=== PATIENT | male | born 1950 | race African-American/Black ===

== ENCOUNTER 2019-11-15 14:31 | Inpatient (IN) | payer MEDICARE, MEDICAID ==
[~2019-11-15] VITALS: Ht 172.7 cm; Wt 63.5 kg
[2019-11-15] MEDS ORDERED: SODIUM CHLORIDE 0.9% 1000ML BAG (SEPSIS BOLUS) IV ONE (15:15)
[2019-11-15 15:46] LABS: HEMATOCRIT. 27.5 % (42.0-52.0); HEMOGLOBIN. 9.5 g/dL (14.0-18.0); LYMPHOCYTES % 11.5 % (20.0-50.0); MEAN CORPUSCULAR HEMOGLOBIN 33.5 pg (28.0-32.0); MEAN CORPUSCULAR VOLUME 97.1 fL (80.0-94.0); MEAN PLATELET VOLUME 9.5 fl (7.4-10.4); MONOCYTES % 7.6 % (2.0-8.0); NEUTROPHILS % 77.9 % (40.0-76.0); PLATELET 368 x1000/uL (130-400); RED BLOOD CELL COUNT 2.83 mill/uL (4.7-6.1); RED CELL DISTRIBUTION WIDTH 13.3 % (11.6-14.6)
[2019-11-15 15:48] LABS: CHLORIDE 108 mEq/L (98-107)
[2019-11-15 15:49] LABS: PROTHROMBIN TIME 10.6 sec (9.6-11.0)
[2019-11-15] MEDS ORDERED: PIPERACILLIN/TAZ 3.375G PREMIX 50 ML IV ONE (16:15)
[2019-11-15 16:49] LABS: CLARITY URINE CLEAR (CLEAR); COLOR URINE YELLOW (YELLOW); KETONES URINE NEGATIVE (NEGATIVE); LEUKOCYTE ESTERASE URINE 1+ (NEGATIVE); NITRITE URINE NEGATIVE (NEGATIVE); OCCULT BLOOD URINE NEGATIVE (NEGATIVE); PROTEIN URINE 1+ (NEGATIVE); SPECIFIC GRAVITY URINE 1.017 (1.005-1.030)
[2019-11-15 17:01] LABS: *AMPHETAMINES SCREEN URINE NEGATIVE (NEGATIVE); *BARBITURATES SCREEN URINE NEGATIVE (NEGATIVE); *BENZODIAZEPINES SCREEN URINE NEGATIVE (NEGATIVE); *COCAINE SCREEN URINE NEGATIVE (NEGATIVE); METHADONE URINE SCREEN NEGATIVE (NEGATIVE)
[2019-11-15 17:02] LABS: CANNABINOID URINE SCREEN NEGATIVE (NEGATIVE); OPIATES URINE SCREEN PRESUMTIVE POSITIVE (NEGATIVE); PHENCYCLIDINE URINE SCREEN NEGATIVE (NEGATIVE)
[2019-11-15] MEDS ORDERED: PIPERACILLIN/TAZ 3.375G PREMIX 50 ML IV NR (17:15)
[2019-11-15] MEDS ORDERED: PIPERACILLIN/TAZ 3.375G PREMIX 50 ML IV SCH (23:15)
[2019-11-15] MEDS ORDERED: IPRATROPIUM/ALBUTEROL 0.5-3(2.5)MG/3ML NEB NEB PRN (23:15)
[2019-11-15] MEDS ORDERED: ONDANSETRON HCL 4MG/2ML INJ IV PRN (23:15)
[2019-11-15] MEDS ORDERED: ENOXAPARIN 40MG/0.4ML SYR SUBCUT SCH (23:15)
[2019-11-16] VITALS (7 sets, daily range): BP systolic 103–137; BP diastolic 63–86
[2019-11-16] MEDS: PIPERACILLIN/TAZOBACTAM 2.25 G in DEXTROSE 5% WATER 50 ML IV SCH ×5 (00:30→23:09)
[2019-11-16] MEDS ORDERED: VANCOMYCIN 750 MG PREMIX 150 ML IV SCH (01:00)
[2019-11-16] MEDS: HYDROMORPHONE HCL/PF 2MG/ML CPJ IV PRN ×6 (01:32→22:16)
[2019-11-16] MEDS: ACETAMINOPHEN 325MG TABLET PO PRN ×4 (03:12→22:15)
[2019-11-16] MEDS ORDERED: DEXTROSE 50% WATER 50ML SYRINGE IV PRN (03:30)
[2019-11-16] MEDS ORDERED: AMLO10TA80 MT (05:51)
[2019-11-16] MEDS ORDERED: METO-385 MT (05:51)
[2019-11-16] MEDS ORDERED: CEPH500C2 MT (06:31)
[2019-11-16] MEDS: SODIUM CHLORIDE 0.9% 1,000 ML IV SCH ×3 (06:51→23:10)
[2019-11-16] MEDS: BLOOD SUGAR DIAGNOSTIC STRIP TEST SCH ×4 (07:23→21:00)
[2019-11-16] MEDS: INSULIN LISPRO 100 UNITS/ML SUBCUT SCH ×4 (07:50→20:59)
[2019-11-16] MEDS ORDERED: ENOXAPARIN 30MG/0.3ML SYR SUBCUT SCH (09:00)
[2019-11-16 12:11] LABS: EOSINOPHILS % 2.4 % (0.0-5.0); HEMOGLOBIN. 9.5 g/dL (14.0-18.0); LYMPHOCYTES % 11.9 % (20.0-50.0); MEAN CORPUSCULAR HEMOGLOBIN 32.9 pg (28.0-32.0); MEAN CORPUSCULAR VOLUME 96.4 fL (80.0-94.0); MEAN PLATELET VOLUME 8.9 fl (7.4-10.4); MONOCYTES % 8.1 % (2.0-8.0); NEUTROPHILS % 76.6 % (40.0-76.0); PLATELET 301 x1000/uL (130-400); RED CELL DISTRIBUTION WIDTH 13.1 % (11.6-14.6)
[2019-11-16 12:18] LABS: CHLORIDE 113 mEq/L (98-107)
[2019-11-16 12:26] LABS: CREATINE KINASE 149 IU/L (39-308)
[2019-11-16 12:27] LABS: CREATINE KINASE MB FRACTION < 1.0 ng/mL (0.5-3.6)
[2019-11-17 00:02] VITALS: BP 118/77
[2019-11-17] MEDS: ACETAMINOPHEN 325MG TABLET PO PRN ×4 (02:16→21:30)
[2019-11-17] MEDS: HYDROMORPHONE HCL/PF 2MG/ML CPJ IV PRN ×5 (02:16→22:51)
[2019-11-17 04:00] VITALS: BP 153/87
[2019-11-17] MEDS: HYDROCODONE/ACETAMINOPHEN 5/325MG TABLET PO PRN ×3 (05:43→19:41)
[2019-11-17] MEDS: PIPERACILLIN/TAZOBACTAM 2.25 G in DEXTROSE 5% WATER 50 ML IV SCH ×3 (06:19→17:23)
[2019-11-17] MEDS: BLOOD SUGAR DIAGNOSTIC STRIP TEST SCH ×4 (06:36→20:55)
[2019-11-17] MEDS: INSULIN LISPRO 100 UNITS/ML SUBCUT SCH ×4 (06:37→20:55)
[2019-11-17 06:39] LABS: BASOPHILS % 1.1 % (0.0-2.0); EOSINOPHILS % 3.1 % (0.0-5.0); HEMATOCRIT. 24.7 % (42.0-52.0); HEMOGLOBIN. 8.4 g/dL (14.0-18.0); LYMPHOCYTES % 11.6 % (20.0-50.0); MEAN CORPUSCULAR HEMOGLOBIN 32.8 pg (28.0-32.0); MEAN CORPUSCULAR VOLUME 96.2 fL (80.0-94.0); MEAN PLATELET VOLUME 9.3 fl (7.4-10.4); MONOCYTES % 8.6 % (2.0-8.0); NEUTROPHILS % 75.6 % (40.0-76.0); PLATELET 287 x1000/uL (130-400); RED BLOOD CELL COUNT 2.56 mill/uL (4.7-6.1); RED CELL DISTRIBUTION WIDTH 13.2 % (11.6-14.6)
[2019-11-17 06:50] LABS: CHLORIDE 114 mEq/L (98-107)
[2019-11-17 07:00] LABS: CREATINE KINASE 150 IU/L (39-308)
[2019-11-17 07:03] LABS: CREATINE KINASE MB FRACTION < 1.0 ng/mL (0.5-3.6)
[2019-11-17 08:08] VITALS: BP 120/74
[2019-11-17] MEDS: SODIUM CHLORIDE 0.9% 1,000 ML IV SCH ×3 (08:46→23:01)
[2019-11-17] MEDS: ASPIRIN 81MG EC TABLET PO SCH (08:47)
[2019-11-17] MEDS: AMLODIPINE 5MG TABLET PO SCH (08:47)
[2019-11-17] MEDS: ENOXAPARIN 40MG/0.4ML SYR SUBCUT SCH (08:50)
[2019-11-17] MEDS ORDERED: VANCOMYCIN 750 MG PREMIX 150 ML IV SCH (12:00)
[2019-11-17 12:08] VITALS: BP 130/78
[2019-11-17] MEDS ORDERED: IOHEXOL-350 100 ML BOTTLE ONE ×2 (12:43→17:13)
[2019-11-17 16:09] VITALS: BP 125/79
[2019-11-17 20:19] VITALS: BP 121/75
[2019-11-18] MEDS: PIPERACILLIN/TAZOBACTAM 3.375 G in DEXT 5% WATER 100 ML IV SCH ×4 (00:05→17:54)
[2019-11-18] MEDS: HYDROCODONE/ACETAMINOPHEN 5/325MG TABLET PO PRN ×6 (00:29→23:30)
[2019-11-18 00:43] VITALS: BP 116/81
[2019-11-18] MEDS: ACETAMINOPHEN 325MG TABLET PO PRN ×2 (01:43→06:26)
[2019-11-18] MEDS: HYDROMORPHONE HCL/PF 2MG/ML CPJ IV PRN ×4 (02:53→20:45)
[2019-11-18 04:00] VITALS: BP 144/80
[2019-11-18] MEDS: BLOOD SUGAR DIAGNOSTIC STRIP TEST SCH ×4 (06:25→20:48)
[2019-11-18 06:58] LABS: BASOPHILS % 1.1 % (0.0-2.0); HEMATOCRIT. 27.8 % (42.0-52.0); HEMOGLOBIN. 9.6 g/dL (14.0-18.0); LYMPHOCYTES % 17.1 % (20.0-50.0); MEAN CORPUSCULAR HEMOGLOBIN 32.9 pg (28.0-32.0); MEAN CORPUSCULAR VOLUME 95.1 fL (80.0-94.0); MEAN PLATELET VOLUME 9.3 fl (7.4-10.4); MONOCYTES % 8.3 % (2.0-8.0); NEUTROPHILS % 70.5 % (40.0-76.0); PLATELET 320 x1000/uL (130-400); RED BLOOD CELL COUNT 2.92 mill/uL (4.7-6.1); RED CELL DISTRIBUTION WIDTH 13.2 % (11.6-14.6)
[2019-11-18] MEDS: SODIUM CHLORIDE 0.9% 1,000 ML IV SCH ×3 (07:30→23:30)
[2019-11-18] MEDS: INSULIN LISPRO 100 UNITS/ML SUBCUT SCH ×4 (07:50→20:48)
[2019-11-18 07:59] LABS: CHLORIDE 110 mEq/L (98-107)
[2019-11-18 08:00] VITALS: BP 139/88
[2019-11-18] MEDS: ENOXAPARIN 40MG/0.4ML SYR SUBCUT SCH ×2 (09:38→09:40)
[2019-11-18] MEDS: ASPIRIN 81MG EC TABLET PO SCH (09:39)
[2019-11-18] MEDS: AMLODIPINE 5MG TABLET PO SCH ×2 (09:39→20:45)
[2019-11-18 12:00] VITALS: BP 129/83
[2019-11-18 16:00] VITALS: BP 117/82
[2019-11-18 20:00] VITALS: BP 134/84
[2019-11-19] VITALS: BP 121/77
[2019-11-19] MEDS: PIPERACILLIN/TAZOBACTAM 3.375 G in DEXT 5% WATER 100 ML IV SCH ×4 (00:35→17:45)
[2019-11-19] MEDS: HYDROMORPHONE HCL/PF 2MG/ML CPJ IV PRN ×4 (00:45→19:40)
[2019-11-19] MEDS: HYDROCODONE/ACETAMINOPHEN 5/325MG TABLET PO PRN ×4 (03:30→21:35)
[2019-11-19 04:00] VITALS: BP 129/84
[2019-11-19] MEDS: SODIUM CHLORIDE 0.9% 1,000 ML IV SCH ×3 (06:18→20:03)
[2019-11-19] MEDS: INSULIN LISPRO 100 UNITS/ML SUBCUT SCH ×4 (06:52→20:04)
[2019-11-19] MEDS: BLOOD SUGAR DIAGNOSTIC STRIP TEST SCH ×4 (06:52→20:03)
[2019-11-19 08:00] VITALS: BP 120/81
[2019-11-19] MEDS: ASPIRIN 81MG EC TABLET PO SCH (09:25)
[2019-11-19] MEDS: AMLODIPINE 5MG TABLET PO SCH ×2 (09:25→20:02)
[2019-11-19 12:00] VITALS: BP 127/65
[2019-11-19 16:00] VITALS: BP 104/55
[2019-11-19 20:00] VITALS: BP 117/80
[2019-11-20] VITALS: BP 112/77
[2019-11-20] MEDS: PIPERACILLIN/TAZOBACTAM 3.375 G in DEXT 5% WATER 100 ML IV SCH ×4 (00:27→17:44)
[2019-11-20] MEDS: HYDROCODONE/ACETAMINOPHEN 5/325MG TABLET PO PRN ×4 (01:48→20:23)
[2019-11-20 04:00] VITALS: BP 121/73
[2019-11-20] MEDS: HYDROMORPHONE HCL/PF 2MG/ML CPJ IV PRN ×4 (04:12→21:41)
[2019-11-20] MEDS: BLOOD SUGAR DIAGNOSTIC STRIP TEST SCH ×4 (06:32→20:24)
[2019-11-20] MEDS: SODIUM CHLORIDE 0.9% 1,000 ML IV SCH ×2 (06:33→15:01)
[2019-11-20] MEDS: INSULIN LISPRO 100 UNITS/ML SUBCUT SCH ×4 (07:50→20:23)
[2019-11-20 08:00] VITALS: BP 124/99
[2019-11-20] MEDS: ASPIRIN 81MG EC TABLET PO SCH (08:06)
[2019-11-20] MEDS: AMLODIPINE 5MG TABLET PO SCH ×2 (08:07→20:23)
[2019-11-20] MEDS: ENOXAPARIN 40MG/0.4ML SYR SUBCUT SCH (08:07)
[2019-11-20 12:00] VITALS: BP 142/91
[2019-11-20 16:00] VITALS: BP 139/87
[2019-11-20 20:40] VITALS: BP 114/84
[2019-11-21] VITALS: BP 148/95
[2019-11-21] MEDS: HYDROCODONE/ACETAMINOPHEN 5/325MG TABLET PO PRN (00:23)
[2019-11-21] MEDS: GABAPENTIN 300MG CAPSULE PO SCH ×3 (01:29→21:31)
[2019-11-21] MEDS: HYDROMORPHONE HCL/PF 2MG/ML CPJ IV PRN ×5 (01:30→21:32)
[2019-11-21 04:00] VITALS: BP 131/85
[2019-11-21] MEDS: SODIUM CHLORIDE 0.9% 1,000 ML IV SCH ×4 (04:35→23:30)
[2019-11-21] MEDS: BLOOD SUGAR DIAGNOSTIC STRIP TEST SCH ×4 (07:20→21:00)
[2019-11-21] MEDS: INSULIN LISPRO 100 UNITS/ML SUBCUT SCH ×4 (07:44→21:00)
[2019-11-21 08:00] VITALS: BP 138/94
[2019-11-21] MEDS: AMLODIPINE 5MG TABLET PO SCH ×2 (08:46→21:32)
[2019-11-21] MEDS: ASPIRIN 81MG EC TABLET PO SCH (08:46)
[2019-11-21] MEDS: ENOXAPARIN 40MG/0.4ML SYR SUBCUT SCH (08:47)
[2019-11-21 12:00] VITALS: BP 124/77
[2019-11-21 15:29] VITALS: BP 138/94
[2019-11-21] MEDS: ACETAMINOPHEN 325MG TABLET PO PRN (17:49)
[2019-11-21 20:03] VITALS: BP 126/86
[2019-11-22 00:10] VITALS: BP 129/89
[2019-11-22 04:00] VITALS: BP 124/93
[2019-11-22] MEDS: HYDROMORPHONE HCL/PF 2MG/ML CPJ IV PRN ×4 (04:31→20:18)
[2019-11-22] MEDS: GABAPENTIN 300MG CAPSULE PO SCH ×3 (05:26→21:29)
[2019-11-22] MEDS: BLOOD SUGAR DIAGNOSTIC STRIP TEST SCH ×4 (07:20→20:37)
[2019-11-22] MEDS: INSULIN LISPRO 100 UNITS/ML SUBCUT SCH ×4 (07:50→20:37)
[2019-11-22 08:00] VITALS: BP 124/94
[2019-11-22 08:01] LABS: BASOPHILS % 0.9 % (0.0-2.0); EOSINOPHILS % 4.6 % (0.0-5.0); HEMATOCRIT. 28.1 % (42.0-52.0); HEMOGLOBIN. 9.5 g/dL (14.0-18.0); LYMPHOCYTES % 15.5 % (20.0-50.0); MEAN CORPUSCULAR HEMOGLOBIN 32.5 pg (28.0-32.0); MEAN CORPUSCULAR VOLUME 95.7 fL (80.0-94.0); MEAN PLATELET VOLUME 8.8 fl (7.4-10.4); MONOCYTES % 9.4 % (2.0-8.0); NEUTROPHILS % 69.6 % (40.0-76.0); PLATELET 368 x1000/uL (130-400); RED BLOOD CELL COUNT 2.94 mill/uL (4.7-6.1); RED CELL DISTRIBUTION WIDTH 13.4 % (11.6-14.6)
[2019-11-22 08:07] LABS: CHLORIDE 107 mEq/L (98-107)
[2019-11-22] MEDS: ASPIRIN 81MG EC TABLET PO SCH (09:18)
[2019-11-22] MEDS: SODIUM CHLORIDE 0.9% 1,000 ML IV SCH ×2 (09:18→17:40)
[2019-11-22] MEDS: AMLODIPINE 5MG TABLET PO SCH ×2 (09:18→20:11)
[2019-11-22] MEDS: ENOXAPARIN 40MG/0.4ML SYR SUBCUT SCH (09:19)
[2019-11-22] MEDS: ACETAMINOPHEN 325MG TABLET PO PRN ×2 (11:21→17:40)
[2019-11-22 12:00] VITALS: BP 150/94
[2019-11-22 16:00] VITALS: BP 138/92
[2019-11-22 20:12] VITALS: BP 111/75
[2019-11-22] MEDS: LOSARTAN POTASSIUM 50 MG TABLET PO SCH (20:18)
[2019-11-23] MEDS: HYDROMORPHONE HCL/PF 2MG/ML CPJ IV PRN ×5 (00:13→20:16)
[2019-11-23] MEDS: SODIUM CHLORIDE 0.9% 1,000 ML IV SCH ×3 (00:13→19:55)
[2019-11-23 00:22] VITALS: BP 131/74
[2019-11-23 04:00] VITALS: BP 123/75
[2019-11-23] MEDS: GABAPENTIN 300MG CAPSULE PO SCH ×3 (06:15→21:03)
[2019-11-23] MEDS: BLOOD SUGAR DIAGNOSTIC STRIP TEST SCH ×4 (06:49→20:22)
[2019-11-23] MEDS: INSULIN LISPRO 100 UNITS/ML SUBCUT SCH ×4 (06:49→20:22)
[2019-11-23 08:00] VITALS: BP 123/86
[2019-11-23] MEDS: ASPIRIN 81MG EC TABLET PO SCH (08:45)
[2019-11-23] MEDS: LOSARTAN POTASSIUM 50 MG TABLET PO SCH (08:45)
[2019-11-23] MEDS: AMLODIPINE 5MG TABLET PO SCH ×2 (08:46→20:16)
[2019-11-23] MEDS: ENOXAPARIN 40MG/0.4ML SYR SUBCUT SCH (08:47)
[2019-11-23] MEDS: ACETAMINOPHEN 325MG TABLET PO PRN ×2 (10:51→16:44)
[2019-11-23 12:00] VITALS: BP 111/67
[2019-11-23 16:00] VITALS: BP 120/88
[2019-11-23] MEDS ORDERED: LOSARTAN POTASSIUM 50 MG TABLET PO SCH (18:40)
[2019-11-23 20:00] VITALS: BP 109/77
[2019-11-24] VITALS: BP 116/69
[2019-11-24] MEDS: HYDROMORPHONE HCL/PF 2MG/ML CPJ IV PRN ×5 (01:09→20:11)
[2019-11-24 04:00] VITALS: BP 132/80
[2019-11-24] MEDS: GABAPENTIN 300MG CAPSULE PO SCH ×3 (05:57→21:42)
[2019-11-24] MEDS: SODIUM CHLORIDE 0.9% 1,000 ML IV SCH ×4 (06:15→20:12)
[2019-11-24] MEDS: BLOOD SUGAR DIAGNOSTIC STRIP TEST SCH ×4 (06:38→21:58)
[2019-11-24] MEDS: INSULIN LISPRO 100 UNITS/ML SUBCUT SCH ×4 (07:50→21:00)
[2019-11-24 08:00] VITALS: BP 127/89
[2019-11-24] MEDS: ACETAMINOPHEN 325MG TABLET PO PRN (08:40)
[2019-11-24] MEDS: ASPIRIN 81MG EC TABLET PO SCH (08:40)
[2019-11-24] MEDS: AMLODIPINE 5MG TABLET PO SCH ×2 (08:40→20:11)
[2019-11-24] MEDS: ENOXAPARIN 40MG/0.4ML SYR SUBCUT SCH (08:41)
[2019-11-24] MEDS: LOSARTAN POTASSIUM 50 MG TABLET PO SCH (08:41)
[2019-11-24] MEDS ORDERED: HYDROMORPHONE HCL/PF 2MG/ML CPJ IM PRN (09:15)
[2019-11-24 12:25] VITALS: BP 109/74
[2019-11-24] MEDS: HYDROCODONE/ACETAMINOPHEN 5/325MG TABLET PO PRN ×3 (13:20→22:44)
[2019-11-24 16:00] VITALS: BP 111/23
[2019-11-24 20:00] VITALS: BP 115/73
[2019-11-24] MEDS: LORAZEPAM 1MG TABLET PO PRN (20:36)
[2019-11-25] VITALS: BP 135/78
[2019-11-25] MEDS: HYDROMORPHONE HCL/PF 2MG/ML CPJ IV PRN ×5 (00:21→21:56)
[2019-11-25] MEDS: HYDROCODONE/ACETAMINOPHEN 5/325MG TABLET PO PRN ×4 (03:31→19:50)
[2019-11-25] MEDS: LORAZEPAM 1MG TABLET PO PRN (03:48)
[2019-11-25 04:00] VITALS: BP 112/72
[2019-11-25] MEDS: GABAPENTIN 300MG CAPSULE PO SCH ×3 (05:51→21:56)
[2019-11-25] MEDS: SODIUM CHLORIDE 0.9% 1,000 ML IV SCH ×3 (06:15→23:16)
[2019-11-25] MEDS: INSULIN LISPRO 100 UNITS/ML SUBCUT SCH ×4 (06:28→21:00)
[2019-11-25] MEDS: BLOOD SUGAR DIAGNOSTIC STRIP TEST SCH ×4 (06:28→21:00)
[2019-11-25 08:00] VITALS: BP 97/56
[2019-11-25] MEDS: AMLODIPINE 5MG TABLET PO SCH ×2 (09:00→21:56)
[2019-11-25] MEDS: LOSARTAN POTASSIUM 50 MG TABLET PO SCH (09:00)
[2019-11-25] MEDS: ASPIRIN 81MG EC TABLET PO SCH (09:00)
[2019-11-25] MEDS: ENOXAPARIN 40MG/0.4ML SYR SUBCUT SCH (09:00)
[2019-11-25 12:00] VITALS: BP 119/74
[2019-11-25 16:00] VITALS: BP 126/78
[2019-11-25 20:00] VITALS: BP 118/91
[2019-11-26] VITALS: BP 114/71
[2019-11-26] MEDS: HYDROCODONE/ACETAMINOPHEN 5/325MG TABLET PO PRN ×5 (00:10→16:34)
[2019-11-26] MEDS: HYDROMORPHONE HCL/PF 2MG/ML CPJ IV PRN ×4 (02:27→14:37)
[2019-11-26 04:00] VITALS: BP 126/83
[2019-11-26] MEDS: GABAPENTIN 300MG CAPSULE PO SCH ×2 (06:40→14:36)
[2019-11-26] MEDS: SODIUM CHLORIDE 0.9% 1,000 ML IV SCH ×2 (06:51→10:40)
[2019-11-26] MEDS: BLOOD SUGAR DIAGNOSTIC STRIP TEST SCH ×3 (06:52→17:20)
[2019-11-26] MEDS: INSULIN LISPRO 100 UNITS/ML SUBCUT SCH ×3 (07:44→17:50)
[2019-11-26 08:00] VITALS: BP 101/65
[2019-11-26] MEDS: LOSARTAN POTASSIUM 50 MG TABLET PO SCH (08:37)
[2019-11-26] MEDS: AMLODIPINE 5MG TABLET PO SCH (08:38)
[2019-11-26] MEDS: ASPIRIN 81MG EC TABLET PO SCH (08:38)
[2019-11-26] MEDS: ENOXAPARIN 40MG/0.4ML SYR SUBCUT SCH (08:39)
[2019-11-26 12:00] VITALS: BP 117/70
[2019-11-26 16:00] VITALS: BP 108/72
[2019-11-26 17:04] VITALS: BP 108/72
== END 2019-11-26 19:10 | DRG 564 ==
LOC: ER 14:51 → MICUSO 17:01 → EDBEDREQ 17:05 → EDBEDREQSVC 17:05 → 6WST 11-16 01:21 → 6EST 11-22 11:57
PROVIDERS: ADMIT Internal Medicine; ATTEND Internal Medicine
DX: T87.81 Dehiscence of amputation stump (principal); E43 Unspecified severe protein-calorie malnutrition; N39.0 Urinary tract infection, site not specified; N17.9 Acute kidney failure, unspecified; I96 Gangrene, not elsewhere classified; I13.10 Hypertensive heart and chronic kidney disease without heart failure, with stage 1 through stage 4 chronic kidney disease, or unspecified chronic kidney disease; M06.9 Rheumatoid arthritis, unspecified; L84 Corns and callosities; T87.89 Other complications of amputation stump; F15.10 Other stimulant abuse, uncomplicated; I70.202 Unspecified atherosclerosis of native arteries of extremities, left leg; D64.9 Anemia, unspecified; D63.8 Anemia in other chronic diseases classified elsewhere; N18.9 Chronic kidney disease, unspecified; G54.6 Phantom limb syndrome with pain; Y83.5 Amputation of limb(s) as the cause of abnormal reaction of the patient, or of later complication, without mention of misadventure at the time of the procedure; T87.43 Infection of amputation stump, right lower extremity; Z79.899 Other long term (current) drug therapy; Z87.891 Personal history of nicotine dependence; Z89.511 Acquired absence of right leg below knee; Z82.49 Family history of ischemic heart disease and other diseases of the circulatory system; Z68.21 Body mass index [BMI] 21.0-21.9, adult; Y92.89 Other specified places as the place of occurrence of the external cause; Z03.818 Encounter for observation for suspected exposure to other biological agents ruled out
CPT/HCPCS: 36415; 71045; 72191; 73706; 80048; 80053; 80305; 81003; 82550; 82553; 82962; 83036; 83605; 83880; 84145; 84484; 85025; 92523; 93005; 93923; 97110; 97162; 97166; 97530; 99291; J1170; J1650; J1815; J2543; J3370; J7030; J7060; Q9967; U0003-CS

== ENCOUNTER 2019-12-21 17:55 | Inpatient (IN) | payer MEDICARE, MEDICAID ==
[~2019-12-21] VITALS: Ht 320 cm; Wt 59.4 kg
[~2019-12-21 17:55] MED LIST: AMLO10TA80 MT; CEPH500C2 MT; METO-385 MT
[2019-12-21 19:51] LABS: BASOPHILS % 0.9 % (0.0-2.0); EOSINOPHILS % 4.5 % (0.0-5.0); HEMATOCRIT. 24.4 % (42.0-52.0); HEMOGLOBIN. 8.3 g/dL (14.0-18.0); LYMPHOCYTES % 20.3 % (20.0-50.0); MEAN CORPUSCULAR HEMOGLOBIN 31.6 pg (28.0-32.0); MONOCYTES % 6.3 % (2.0-8.0); PLATELET 406 x1000/uL (130-400); RED BLOOD CELL COUNT 2.63 mill/uL (4.7-6.1)
[2019-12-21 19:53] LABS: CHLORIDE 104 mEq/L (98-107)
[2019-12-21] MEDS ORDERED: CLONIDINE 0.1MG TABLET PO PRN (23:00)
[2019-12-21] MEDS ORDERED: ACETAMINOPHEN 325MG TABLET PO PRN (23:00)
[2019-12-21] MEDS ORDERED: ONDANSETRON HCL 4MG/2ML INJ IV PRN (23:00)
[2019-12-21] MEDS ORDERED: MAGNESIUM/ALUMINUM HYDROXIDE/SIMETHICONE 30ML UDC PO PRN (23:00)
[2019-12-21] MEDS ORDERED: IPRATROPIUM/ALBUTEROL 0.5-3(2.5)MG/3ML NEB NEB PRN (23:00)
[2019-12-21] MEDS ORDERED: LORAZEPAM 2MG/ML CPJ IV PRN (23:00)
[2019-12-21] MEDS ORDERED: DOCUSATE SODIUM 100MG CAPSULE PO PRN (23:00)
[2019-12-21] MEDS ORDERED: GUAIFENESIN 200MG/10ML SUGAR FREE UDC PO PRN (23:00)
[2019-12-21] MEDS ORDERED: DIPHENHYDRAMINE 50MG/ML VIAL IV PRN (23:00)
[2019-12-21] MEDS ORDERED: MORPHINE SULFATE 2 MG/ML CPJ (NOT FOR IM USE) IV PRN (23:00)
[2019-12-21] MEDS ORDERED: NA PHOS,M-B/NA PHOS,DI-BA ENEMA 118ML PR PRN (23:00)
[2019-12-22 00:04] LABS: CLARITY URINE CLEAR (CLEAR); COLOR URINE YELLOW (YELLOW); KETONES URINE NEGATIVE (NEGATIVE); LEUKOCYTE ESTERASE URINE 2+ (NEGATIVE); NITRITE URINE NEGATIVE (NEGATIVE); OCCULT BLOOD URINE NEGATIVE (NEGATIVE); PROTEIN URINE TRACE (NEGATIVE); SPECIFIC GRAVITY URINE 1.018 (1.005-1.030)
[2019-12-22 00:22] LABS: *AMPHETAMINES SCREEN URINE NEGATIVE (NEGATIVE); *BARBITURATES SCREEN URINE NEGATIVE (NEGATIVE)
[2019-12-22 00:23] LABS: *BENZODIAZEPINES SCREEN URINE NEGATIVE (NEGATIVE); *COCAINE SCREEN URINE NEGATIVE (NEGATIVE); CANNABINOID URINE SCREEN NEGATIVE (NEGATIVE); METHADONE URINE SCREEN NEGATIVE (NEGATIVE); OPIATES URINE SCREEN PRESUMTIVE POSITIVE (NEGATIVE); PHENCYCLIDINE URINE SCREEN NEGATIVE (NEGATIVE)
[2019-12-22] MEDS: HYDROCODONE/ACETAMINOPHEN 5/325MG TABLET PO PRN ×2 (03:52→07:58)
[2019-12-22] MEDS ORDERED: FUROSEMIDE 40MG/4ML VIAL IV SCH (09:00)
[2019-12-22] MEDS ORDERED: ASPIRIN 81MG EC TABLET PO SCH (09:00)
[2019-12-22] MEDS ORDERED: ENOXAPARIN 40MG/0.4ML SYR SUBCUT SCH (09:00)
[2019-12-22] MEDS: CEFTRIAXONE 1 G PREMIX 50 ML IV SCH (10:50)
[2019-12-22 11:35] LABS: BASOPHILS % 1.2 % (0.0-2.0); EOSINOPHILS % 2.9 % (0.0-5.0); HEMATOCRIT. 26.9 % (42.0-52.0); LYMPHOCYTES % 22.2 % (20.0-50.0); MEAN CORPUSCULAR VOLUME 92.1 fL (80.0-94.0); MEAN PLATELET VOLUME 8.7 fl (7.4-10.4); MONOCYTES % 7.9 % (2.0-8.0); NEUTROPHILS % 65.8 % (40.0-76.0); PLATELET 341 x1000/uL (130-400); RED BLOOD CELL COUNT 2.92 mill/uL (4.7-6.1)
[2019-12-22 11:40] LABS: CHLORIDE 103 mEq/L (98-107)
[2019-12-22 11:48] LABS: LDL CHOLESTEROL 150 mg/dL (5-100)
[2019-12-22 11:49] LABS: HDL CHOLESTEROL 35 mg/dL (40-59)
[2019-12-22 11:50] LABS: T4 FREE 1.08 ng/dL (0.76-1.46)
[2019-12-22] MEDS: AZITHROMYCIN 500 MG in DEXT 5% WATER 250 ML IV SCH (12:00)
[2019-12-22] MEDS ORDERED: MAGNESIUM/ALUMINUM HYDROXIDE/SIMETHICONE 30ML UDC PO PRN (19:30)
[2019-12-22] MEDS ORDERED: ONDANSETRON HCL 4MG/2ML INJ IV PRN (19:30)
[2019-12-22] MEDS ORDERED: CLONIDINE 0.1MG TABLET PO PRN (19:30)
[2019-12-22] MEDS ORDERED: GUAIFENESIN 200MG/10ML SUGAR FREE UDC PO PRN (19:30)
[2019-12-22] MEDS ORDERED: IPRATROPIUM/ALBUTEROL 0.5-3(2.5)MG/3ML NEB HHN PRN (19:30)
[2019-12-22] MEDS ORDERED: NA PHOS,M-B/NA PHOS,DI-BA ENEMA 118ML PR NR (19:53)
[2019-12-22] MEDS: ENOXAPARIN 40MG/0.4ML SYR SUBCUT SCH (20:00)
[2019-12-23] MEDS: ENOXAPARIN 40MG/0.4ML SYR SUBCUT SCH ×2 (09:00→20:56)
[2019-12-23] MEDS: CEFTRIAXONE 1 G PREMIX 50 ML IV SCH (09:52)
[2019-12-23] MEDS: AZITHROMYCIN 500 MG in DEXT 5% WATER 250 ML IV SCH (10:00)
[2019-12-23] MEDS: MORPHINE SULFATE 2 MG/ML CPJ (NOT FOR IM USE) IV PRN ×2 (12:22→20:55)
[2019-12-23 15:00] VITALS: BP 110/73
[2019-12-23 17:00] VITALS: BP 110/73
[2019-12-23] MEDS ORDERED: ENOXAPARIN 40MG/0.4ML SYR SUBCUT SCH (17:00)
[2019-12-23 20:00] VITALS: BP 114/80
[2019-12-24] VITALS: BP 126/83
[2019-12-24 04:00] VITALS: BP 120/82
[2019-12-24] MEDS: MORPHINE SULFATE 2 MG/ML CPJ (NOT FOR IM USE) IV PRN ×4 (04:29→18:07)
[2019-12-24] MEDS ORDERED: PRED2.5T4 MT (07:01)
[2019-12-24] MEDS ORDERED: HYDR-3281 MT (07:01)
[2019-12-24] MEDS ORDERED: LISI2.5T47 MT (07:01)
[2019-12-24 08:02] VITALS: BP 111/77
[2019-12-24] MEDS: CEFTRIAXONE 1 G PREMIX 50 ML IV SCH (08:42)
[2019-12-24] MEDS: AZITHROMYCIN 500 MG in DEXT 5% WATER 250 ML IV SCH (08:42)
[2019-12-24] MEDS: ENOXAPARIN 40MG/0.4ML SYR SUBCUT SCH ×2 (08:42→20:39)
[2019-12-24 11:58] VITALS: BP 111/78
[2019-12-24] MEDS: ASPIRIN 81MG TABLET PO SCH (13:12)
[2019-12-24 16:00] VITALS: BP 104/73
[2019-12-24 20:00] VITALS: BP 112/78
[2019-12-24] MEDS: ATORVASTATIN CALCIUM 20MG TABLET PO SCH (20:42)
[2019-12-24] MEDS: HYDROCODONE/ACETAMINOPHEN 5/325MG TABLET PO PRN ×2 (20:42→20:58)
[2019-12-24] MEDS: DIPHENHYDRAMINE 50MG/ML VIAL IM PRN (20:43)
[2019-12-25] VITALS: BP 123/77
[2019-12-25] MEDS: HYDROCODONE/ACETAMINOPHEN 5/325MG TABLET PO PRN (00:01)
[2019-12-25] MEDS: MORPHINE SULFATE 2 MG/ML CPJ (NOT FOR IM USE) IV PRN ×4 (00:10→16:26)
[2019-12-25 04:00] VITALS: BP 114/79
[2019-12-25] MEDS: LORAZEPAM 2MG/ML CPJ IV PRN ×3 (05:05→20:46)
[2019-12-25 07:44] VITALS: BP 124/92
[2019-12-25] MEDS: CEFTRIAXONE 1 G PREMIX 50 ML IV SCH (08:19)
[2019-12-25] MEDS: AZITHROMYCIN 500 MG in DEXT 5% WATER 250 ML IV SCH (08:20)
[2019-12-25] MEDS: ASPIRIN 81MG TABLET PO SCH (09:00)
[2019-12-25] MEDS: ENOXAPARIN 40MG/0.4ML SYR SUBCUT SCH ×2 (09:00→21:37)
[2019-12-25] MEDS ORDERED: HEPARIN SODIUM 1,000 UNIT/1ML VIAL IV ONE ×2 (09:59→10:01)
[2019-12-25] MEDS ORDERED: MIDAZOLAM HCL 2 MG/2 ML VIAL ONE ×2 (12:08→13:36)
[2019-12-25] MEDS ORDERED: FENTANYL CITRATE/PF 50MCG/ML 2ML VIAL ONE (12:09)
[2019-12-25] MEDS ORDERED: IODIXANOL 320MG/ML 100 ML BOTTLE IV ONE (12:09)
[2019-12-25] MEDS ORDERED: LIDOCAINE HCL 1% 20ML VIAL (Pyxis) INJ ONE (12:09)
[2019-12-25] MEDS ORDERED: DIPHENHYDRAMINE 50MG/ML VIAL ONE (13:03)
[2019-12-25] MEDS ORDERED: IOHEXOL-300 100 ML BOTTLE ONE (13:12)
[2019-12-25 16:00] VITALS: BP 122/87
[2019-12-25] MEDS: CLOPIDOGREL 75MG TABLET PO SCH (16:26)
[2019-12-25 20:00] VITALS: BP 116/82
[2019-12-25] MEDS: ATORVASTATIN CALCIUM 20MG TABLET PO SCH ×2 (20:46→21:37)
[2019-12-26] VITALS: BP 133/87
[2019-12-26] MEDS: MORPHINE SULFATE 2 MG/ML CPJ (NOT FOR IM USE) IV PRN ×4 (00:41→21:15)
[2019-12-26 04:00] VITALS: BP 108/81
[2019-12-26] MEDS: LORAZEPAM 2MG/ML CPJ IV PRN (05:17)
[2019-12-26 08:00] VITALS: BP 112/79
[2019-12-26] MEDS: CEFTRIAXONE 1 G PREMIX 50 ML IV SCH (09:06)
[2019-12-26] MEDS: CLOPIDOGREL 75MG TABLET PO SCH (09:06)
[2019-12-26] MEDS: ASPIRIN 81MG TABLET PO SCH (09:06)
[2019-12-26] MEDS: ENOXAPARIN 40MG/0.4ML SYR SUBCUT SCH ×2 (09:07→23:07)
[2019-12-26] MEDS: AZITHROMYCIN 500 MG in DEXT 5% WATER 250 ML IV SCH (09:08)
[2019-12-26 10:48] LABS: BASOPHILS % 1.5 % (0.0-2.0); EOSINOPHILS % 2.4 % (0.0-5.0); HEMATOCRIT. 26.2 % (42.0-52.0); MEAN CORPUSCULAR HEMOGLOBIN 31.5 pg (28.0-32.0); MEAN CORPUSCULAR VOLUME 92.2 fL (80.0-94.0); MEAN PLATELET VOLUME 8.9 fl (7.4-10.4); MONOCYTES % 7.9 % (2.0-8.0); NEUTROPHILS % 68.2 % (40.0-76.0); PLATELET 381 x1000/uL (130-400); RED BLOOD CELL COUNT 2.84 mill/uL (4.7-6.1); RED CELL DISTRIBUTION WIDTH 13.1 % (11.6-14.6)
[2019-12-26 11:59] VITALS: BP 131/81
[2019-12-26] MEDS: AMPICILLIN 500MG in SODIUM CHLORIDE 0.9% 50ML IV SCH ×3 (12:21→23:07)
[2019-12-26 16:00] VITALS: BP 109/78
[2019-12-26 20:00] VITALS: BP 96/62
[2019-12-27] VITALS: BP 130/78
[2019-12-27] MEDS: MORPHINE SULFATE 2 MG/ML CPJ (NOT FOR IM USE) IV PRN ×2 (03:44→10:00)
[2019-12-27 04:00] VITALS: BP 107/59
[2019-12-27] MEDS: AMPICILLIN 500MG in SODIUM CHLORIDE 0.9% 50ML IV SCH ×3 (05:22→16:25)
[2019-12-27 08:00] VITALS: BP 117/88
[2019-12-27] MEDS: ASPIRIN 81MG TABLET PO SCH (08:56)
[2019-12-27] MEDS: CLOPIDOGREL 75MG TABLET PO SCH (08:56)
[2019-12-27] MEDS: ENOXAPARIN 40MG/0.4ML SYR SUBCUT SCH ×2 (08:57→20:00)
[2019-12-27 12:15] VITALS: BP 104/75
[2019-12-27 16:00] VITALS: BP 99/68
[2019-12-27 20:00] VITALS: BP 116/74
[2019-12-27] MEDS: ATORVASTATIN CALCIUM 20MG TABLET PO SCH ×2 (20:00→20:07)
[2019-12-27] MEDS: ACETAMINOPHEN 325MG TABLET PO PRN (20:00)
[2019-12-27] MEDS: DIPHENHYDRAMINE 50MG/ML VIAL IM PRN (20:06)
[2019-12-28] VITALS: BP 110/74
[2019-12-28] MEDS: AMPICILLIN 500MG in SODIUM CHLORIDE 0.9% 50ML IV SCH ×5 (01:30→22:50)
[2019-12-28] MEDS: ACETAMINOPHEN 325MG TABLET PO PRN ×4 (01:53→21:15)
[2019-12-28] MEDS: DIPHENHYDRAMINE 50MG/ML VIAL IM PRN (01:53)
[2019-12-28 04:00] VITALS: BP 103/71
[2019-12-28 07:01] LABS: INR 1.1; PROTHROMBIN TIME 11.1 sec (9.6-11.0)
[2019-12-28 07:22] LABS: CHLORIDE 106 mEq/L (98-107)
[2019-12-28 07:39] LABS: BASOPHILS % 0.7 % (0.0-2.0); EOSINOPHILS % 6.8 % (0.0-5.0); LYMPHOCYTES % 20.1 % (20.0-50.0); MEAN CORPUSCULAR HEMOGLOBIN 31.2 pg (28.0-32.0); MEAN CORPUSCULAR VOLUME 91.5 fL (80.0-94.0); MEAN PLATELET VOLUME 9.2 fl (7.4-10.4); MONOCYTES % 8.5 % (2.0-8.0); NEUTROPHILS % 63.9 % (40.0-76.0); PLATELET 332 x1000/uL (130-400); RED BLOOD CELL COUNT 2.43 mill/uL (4.7-6.1)
[2019-12-28 07:42] LABS: HEMATOCRIT. 22.3 % (42.0-52.0); HEMOGLOBIN. 7.6 g/dL (14.0-18.0)
[2019-12-28 08:00] VITALS: BP 96/69
[2019-12-28] MEDS: CLOPIDOGREL 75MG TABLET PO SCH (08:39)
[2019-12-28] MEDS: ASPIRIN 81MG TABLET PO SCH (08:39)
[2019-12-28] MEDS: ENOXAPARIN 40MG/0.4ML SYR SUBCUT SCH ×2 (08:40→21:10)
[2019-12-28 12:00] VITALS: BP 113/78
[2019-12-28 16:00] VITALS: BP 99/69
[2019-12-28 20:00] VITALS: BP 103/68
[2019-12-28] MEDS: ATORVASTATIN CALCIUM 20MG TABLET PO SCH (21:10)
[2019-12-29] VITALS: BP 106/63
[2019-12-29 04:00] VITALS: BP 103/70
[2019-12-29] MEDS: AMPICILLIN 500MG in SODIUM CHLORIDE 0.9% 50ML IV SCH ×4 (05:18→22:10)
[2019-12-29 07:14] LABS: HEMOGLOBIN 7.7 g/dL (14.0-18.0); MEAN CORPUSCULAR HEMOGLOBIN 31.1 pg (28.0-32.0); MEAN CORPUSCULAR VOLUME 92.5 fL (80.0-94.0); PLATELET 329 x1000/uL (130-400); RED BLOOD CELL COUNT 2.49 mill/uL (4.7-6.1); RED CELL DISTRIBUTION WIDTH 13.1 % (11.6-14.6)
[2019-12-29 07:20] LABS: CHLORIDE 107 mEq/L (98-107)
[2019-12-29 07:27] LABS: TOTAL IRON BINDING CAPACITY 186 ug/dL (250-450)
[2019-12-29 08:00] VITALS: BP 123/76
[2019-12-29] MEDS: ASPIRIN 81MG TABLET PO SCH (09:15)
[2019-12-29] MEDS: CLOPIDOGREL 75MG TABLET PO SCH (09:15)
[2019-12-29] MEDS: ACETAMINOPHEN 325MG TABLET PO PRN ×2 (09:16→20:47)
[2019-12-29] MEDS: ENOXAPARIN 40MG/0.4ML SYR SUBCUT SCH ×2 (09:16→20:47)
[2019-12-29 12:00] VITALS: BP 124/85
[2019-12-29 16:00] VITALS: BP 129/78
[2019-12-29] MEDS: FERROUS SULFATE 325MG TABLET PO SCH (17:18)
[2019-12-29 20:00] VITALS: BP 116/77
[2019-12-29] MEDS: ATORVASTATIN CALCIUM 20MG TABLET PO SCH (20:47)
[2019-12-30 00:17] VITALS: BP 111/72
[2019-12-30 04:00] VITALS: BP 136/87
[2019-12-30] MEDS: AMPICILLIN 500MG in SODIUM CHLORIDE 0.9% 50ML IV SCH ×4 (04:59→23:27)
[2019-12-30 06:12] LABS: HEMATOCRIT 22.9 % (42.0-52.0); HEMOGLOBIN 7.8 g/dL (14.0-18.0); MEAN CORPUSCULAR HEMOGLOBIN 31.1 pg (28.0-32.0); MEAN CORPUSCULAR VOLUME 91.5 fL (80.0-94.0); PLATELET 324 x1000/uL (130-400); RED CELL DISTRIBUTION WIDTH 13.2 % (11.6-14.6)
[2019-12-30 07:35] LABS: CHLORIDE 106 mEq/L (98-107)
[2019-12-30 08:00] VITALS: BP 109/80
[2019-12-30] MEDS: CLOPIDOGREL 75MG TABLET PO SCH (08:38)
[2019-12-30] MEDS: FERROUS SULFATE 325MG TABLET PO SCH ×3 (08:38→16:41)
[2019-12-30] MEDS: ASPIRIN 81MG TABLET PO SCH (08:38)
[2019-12-30] MEDS: ENOXAPARIN 40MG/0.4ML SYR SUBCUT SCH ×2 (08:39→21:00)
[2019-12-30] MEDS: ACETAMINOPHEN 325MG TABLET PO PRN ×4 (08:46→21:01)
[2019-12-30 12:00] VITALS: BP 109/77
[2019-12-30 16:00] VITALS: BP 123/84
[2019-12-30 20:00] VITALS: BP 106/71
[2019-12-30] MEDS: ATORVASTATIN CALCIUM 20MG TABLET PO SCH (20:51)
[2019-12-31] VITALS: BP 107/80
[2019-12-31] MEDS: ACETAMINOPHEN 325MG TABLET PO PRN ×4 (00:28→21:54)
[2019-12-31 04:00] VITALS: BP 118/78
[2019-12-31] MEDS: AMPICILLIN 500MG in SODIUM CHLORIDE 0.9% 50ML IV SCH ×3 (04:34→16:17)
[2019-12-31 08:00] VITALS: BP 114/74
[2019-12-31] MEDS: CLOPIDOGREL 75MG TABLET PO SCH (08:19)
[2019-12-31] MEDS: ASPIRIN 81MG TABLET PO SCH (08:19)
[2019-12-31] MEDS: FERROUS SULFATE 325MG TABLET PO SCH ×3 (08:19→17:07)
[2019-12-31] MEDS: ENOXAPARIN 40MG/0.4ML SYR SUBCUT SCH ×2 (08:22→21:00)
[2019-12-31 12:00] VITALS: BP 118/81
[2019-12-31 16:00] VITALS: BP 109/80
[2019-12-31 20:00] VITALS: BP 121/74
[2019-12-31] MEDS: ATORVASTATIN CALCIUM 20MG TABLET PO SCH (21:53)
[2020-01-01] VITALS: BP 119/77
[2020-01-01] MEDS: AMPICILLIN 500MG in SODIUM CHLORIDE 0.9% 50ML IV SCH (01:11)
[2020-01-01] MEDS: ACETAMINOPHEN 325MG TABLET PO PRN ×2 (02:27→09:12)
[2020-01-01 04:00] VITALS: BP 121/78
[2020-01-01 06:56] LABS: CHLORIDE 108 mEq/L (98-107)
[2020-01-01 07:38] LABS: BASOPHILS % 0.7 % (0.0-2.0); EOSINOPHILS % 3.5 % (0.0-5.0); HEMATOCRIT. 23.5 % (42.0-52.0); HEMOGLOBIN. 8.1 g/dL (14.0-18.0); LYMPHOCYTES % 26.3 % (20.0-50.0); MEAN CORPUSCULAR HEMOGLOBIN 31.3 pg (28.0-32.0); MEAN CORPUSCULAR VOLUME 90.9 fL (80.0-94.0); MEAN PLATELET VOLUME 9.2 fl (7.4-10.4); MONOCYTES % 9.4 % (2.0-8.0); NEUTROPHILS % 60.1 % (40.0-76.0); PLATELET 326 x1000/uL (130-400); RED BLOOD CELL COUNT 2.58 mill/uL (4.7-6.1); RED CELL DISTRIBUTION WIDTH 13.2 % (11.6-14.6)
[2020-01-01 07:45] VITALS: BP 110/77
[2020-01-01] MEDS: CLOPIDOGREL 75MG TABLET PO SCH (09:08)
[2020-01-01] MEDS: ASPIRIN 81MG TABLET PO SCH (09:08)
[2020-01-01] MEDS: ENOXAPARIN 40MG/0.4ML SYR SUBCUT SCH (09:08)
[2020-01-01] MEDS: FERROUS SULFATE 325MG TABLET PO SCH ×2 (09:08→12:23)
[2020-01-01 11:56] VITALS: BP 105/81
[2020-01-01 12:50] VITALS: BP 105/81
== END 2020-01-01 14:47 | DRG 252 ==
LOC: ER 18:06 → EDBEDREQSVC 20:32 → EDBEDREQTM 20:32 → EDBEDREQ 20:32 → MICUSO 23:08 → 8WST 12-23 15:19
PROVIDERS: ADMIT Internal Medicine; ATTEND Internal Medicine
PROC: 047N3Z1 Dilation of Left Popliteal Artery using Drug-Coated Balloon, Percutaneous Approach (ICD-10-PCS; principal; 2019-12-25)
PROC: 047U3Z1 Dilation of Left Peroneal Artery using Drug-Coated Balloon, Percutaneous Approach (ICD-10-PCS; 2019-12-25)
PROC: B41G1ZZ Fluoroscopy of Left Lower Extremity Arteries using Low Osmolar Contrast (ICD-10-PCS; 2019-12-25)
DX: I70.262 Atherosclerosis of native arteries of extremities with gangrene, left leg (principal); E43 Unspecified severe protein-calorie malnutrition; N17.9 Acute kidney failure, unspecified; N39.0 Urinary tract infection, site not specified; F11.20 Opioid dependence, uncomplicated; Z89.511 Acquired absence of right leg below knee; D64.9 Anemia, unspecified; E86.0 Dehydration; E87.8 Other disorders of electrolyte and fluid balance, not elsewhere classified; E88.09 Other disorders of plasma-protein metabolism, not elsewhere classified; B95.2 Enterococcus as the cause of diseases classified elsewhere; M06.9 Rheumatoid arthritis, unspecified; J44.9 Chronic obstructive pulmonary disease, unspecified; I10 Essential (primary) hypertension; K21.9 Gastro-esophageal reflux disease without esophagitis; K59.00 Constipation, unspecified; M19.90 Unspecified osteoarthritis, unspecified site; Z03.818 Encounter for observation for suspected exposure to other biological agents ruled out; Z87.891 Personal history of nicotine dependence; Z91.81 History of falling
CPT/HCPCS: 36415; 37224; 37228; 71045; 73630; 75710; 80048; 80053; 80061; 80305; 81003; 82270; 82668; 82962; 83036; 83540; 83550; 83605; 83880; 84145; 84439; 84443; 84484; 85025; 85027; 85347; 87077; 87186; 93005; 93922; 93970; 97162; 99285; C1725; C1760; C1769; C1887; C1893; C1894; C2623; J0290; J0456; J0696; J1200; J1644; J1650; J1940; J2060; J2250; J2270; J3010; J3490; J7060; Q9967; U0003-CS